=== PATIENT | female | born 2005 | race Caucasian/White ===

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

== ENCOUNTER 2023-09-30 10:31 | Outpatient (CLI) | payer OTHER, SELFPAY ==
[2023-09-30 15:09] LABS: Chlamydia DNA Amplified* NOT DETECTED (No Detected); GC DNA Amplified* NOT DETECTED (No Detected)
== END 2023-09-30 10:32 | disposition home or self-care (01) ==
PROVIDERS: PCP Physician Assistant Medical; Visit Provider Physician Assistant Medical
DX: Z30.9 Encounter for contraceptive management, unspecified (principal); Z11.3 Encounter for screening for infections with a predominantly sexual mode of transmission
CPT/HCPCS: 87491; 87591

== ENCOUNTER 2023-12-03 14:52 | Outpatient (CLI) | payer OTHER, SELFPAY ==
--- OUTSIDE RECORDS SUMMARY | 2023-12-03 14:57 | XMS_ITS | Referral Summary ---
Author Name Unknown Organization [facility] Address [address] [place] [address] Care Team Providers Care Leather Scrubber Name Role Phone Unavailable Primary Care Provider Unavailabl e Source Comments Patient records contain information from all sites at [facility]. For routine questions regarding patient records, call [phone] during business hours, M-F 8:00 AM - 5:00 PM Central Time. Record requests for emergency care only can be directed to [phone] at any time.[facility] Allergies No known active allergies Medications No known medications Active Problems Problem Noted Date Diagnosed Date Depression Major Recurrent Without Psychotic Fea tures 08/18/2019 Resolved Problems Problem Noted Date Diagnosed Date Resolved Date Suicide Ideation 08/15/2019 08/22/2019 Immunizations Name Administration Dates Next Due DTaP (Infanrix, Tripedia) 01/23/2009,,03/26/2004, 004,2003 DTaP / Hep B / IPV (Pediarix) 07/01/2004, 003,2003 H1N1 All Forms 11/03/2009 Hib (PRP-T) (ACTHIB, HIBERIX) 05/09/2005 ,03/26/2004,01/01/2004, 003 IPV 09/09/2004,01/01/2004,2003 Influenza TIV (IM) 09/14/2008 MMR 01/23/2009,09/09/2004 PCV7 (discontinued) 12/16/2004, 4,03/26/2004, 003 JOSE 01/23/2009,12/16/2004 influenza vaccine quad (FLUZONE/FLUARIX) (6 months and older)(PF) 08/16/2019 Social History Tobacco Use Types Packs/Day Years Used Date Smoking Tobacco: Never Smokeless Tobacco: Never Humiliation, Afraid, Rape, and Kick questionnair e Answer Date Recorded Within the last year, have y ou been afraid of your partner or ex-partner? No 03/11/2022 Within the last year, have y ou been humiliated or emotionally abused in other ways by your partner or ex-partner? No Within the last year, have y ou been kicked, hit, slapped, or otherwise physically hurt by your partner or ex-partner? No 03/11/2022 Within the last year, have y ou been raped or forced to have any kind of sexual activity by your partner or ex-partner? No 03/11/2022 Social Connection and Isolat ion Panel [NHANES] Answer Date Recorded In a typical week, how many times do you talk on the phone with family, friends, or neighbors? More than three times a week 03/11/2022 How often do you get togethe r with friends or relatives? More than three times a week 03/11/2022 How often do you attend chur ch or holiness services? Never 03/11/2022 Do you belong to any clubs o r organizations such as judaism groups, unions, fraternal or athletic groups, or school groups? No 03/11/2022 How often do you attend meet ings of the clubs or organizations you belong to? Never 03/11/2022 Are you , , di vorced, , never , or living with a partner? Never 03/11/2022 AUDIT-C Answer Date Recorded Q1: How often do you have a drink containing alc ohol? Never 03/11/2022 Average Number of Drinks Not on file 022 Frequency of Binge Drinking Not on file 02/15 Overall Financial Resource Strain (CARDIA) Answe r Date Recorded How hard is it for you to pa y for the very basics like food, housing, medical care, and heating? Not hard at all 03/11/2022 PHQ-2 Answer Date Recorded PHQ-2 Score 2 03/11/2022 [facility] - Occupational Stress Questionnaire Answer Date Recorded Do you feel stress - tense, restless, nervous, or anxious, or unable to sleep at night because your mind is troubled all the time - these days? To some extent 03/11/2022 Exercise Vital Sign Answer Date Recorde d On average, how many days pe r week do you engage in moderate to strenuous exercise (like a brisk walk)? 2 days 03/11/2022 On average, how many minutes do you engage in exercise at this level? 20 min 03/11/2022 Hunger Vital Sign Answer Date Recorded Within the past 12 months, y ou worried that your food would run out before you got the money to buy more. Never true 03/11/20 Within the past 12 months, t he food you bought just didn't last and you didn't have money to get more. Never true 03/11/2022 PRAPARE - Transportation Answer Date Re corded In the past 12 months, has l ack of transportation kept you from medical appointments or from getting medications? No 02/15 In the past 12 months, has l ack of transportation kept you from meetings, work, or from getting things needed for daily living? No 03/11/2022 Housing Stability Vital Sign Answer Clyde e Recorded In the last 12 months, was t here a time when you were not able to pay the mortgage or rent on time? No 03/11/2022 In the last 12 months, how many places have you lived? 1 03/11/2022 In the last 12 months, was t here a time when you did not have a steady place to sleep or slept in a jail (including now)? No 03/11/2022 Depression Answer Date Recor ded PHQ-9 Total Score (max 27) 14 03/11 Nutrition Answer Date Recorded Nutrition: EVOO Fat Source Yes 03/11 On average, how many serving s of fruits and vegetables do you eat per day (serving size is equal to 1 cup or approximately the size of a tennis ball)? 0-1 03/11/2022 Dental Answer Date Recorded Dental: Regular Dentist No 03/11/20 Employment Answer Date Recorded Employment status Employed and actively working without restrictions 03/11/2022 Education Answer Date Recorded What is the highest level of school you have completed or the highest degree you have received? 12th grade 03/11/2022 Sex and Gender Information Value Date Recorded Sex Assigned at Female 03/11/2022 7:34 AM CDT Gender Identity Not on file Sexual Orientation Bisexual 03/11/2022 7: 34 AM CDT Last Filed Vital Signs Vital Sign Reading Time Taken Comments Blood Pressure 120/70 08/22/2019 7:00 AM CDT Pulse 93 08/22/2019 7:00 AM CDT Temperature 36.7 ??C (98.1 ??F) 08/22/2019 7:00 AM CD T Respiratory Rate 18 08/22/2019 7:00 AM CDT Oxygen Saturation 98% 08/22/2019 7:00 AM CDT Inhaled Oxygen Concentration - - Weight 84.5 kg (186 lb 4.6 oz) 08/22/2019 7:00 A M CDT Height 180 cm (5' 10.87) 08/15/2019 8:29 PM CDT Body Mass Index 26.08 08/15/2019 8:29 PM CDT Plan of Treatment Not on file Advance Directives For more information, please contact: [phone] Latest Code Status on File Code Status Date Activated Date Inactivated Comments Full Code 08/15/2019 8:55 PM 08/22/2019 1:26 PM Question Answer Comments Full Code: Not Discussed Due to: Not medically appropriate
--- OUTSIDE RECORDS SUMMARY | 2023-12-03 14:57 | XMS_ITS | Encounter Summary ---
Author Name Unknown Organization [facility] Address [address] [place] [address] Care Team Providers Care Web Marketing Strategist Name Role Phone Alysa Gillis MD Primary Care Provid er Gwen Conde MD Unavailable [phone] Alysa Gillis MD Unavailable + [phone] Alla Farley DO Primary Care Provider [phone] Padmini Gillis NP Unavailable Encounter Details Date Type Department Care Team (Late st Contact Info) Description 08/16/2013 [facility] Extended Documentation [facility] Services [facility] [address] [place] [address] Nita Medina, [facility] [address] [place] [address] Social History Tobacco Use Types Packs/Day Years Used Date Smoking Tobacco: Never Sex and Gender Information Value Date Recorded Sex Assigned at Not on file Gender Identity Not on file Sexual Orientation Not on file documented as of this encounter Plan of Treatment Not on file documented as of this encounter Visit Diagnoses Not on filedocumented in this encounter Care Teams Web Marketing Strategist Relationship Specialty Start Date End Date Alysa Gillis MD [address] [address] PCP - General Pediatrics 01/20/13 08/13/19 Alysa Gillis MD [address] [address] PCP - Assigned PCP 01/13/14 12/11/18 Alla Farley DO [facility] [address] [place] [address] PCP - General 08/14/19 Gwen Conde MD [address] [address] Pediatric Cardiology 07/13/15 Padmini Gillis NP [address] [place] [address] Assigned PCP 09/06/22 documented as of this encounter
--- OUTSIDE RECORDS SUMMARY | 2023-12-03 14:57 | XMS_ITS | Encounter Summary ---
Author Name Unknown Organization [facility] Address [address] [place] [address]. [place] [address] Care Team Providers Care Banquet Stewardess Name Role Phone Gwen Conde MD Unavailable [phone] Alla Farley DO Primary Care Provider [phone] Padmini Gillis NP Unavailable Reason for Visit * Reason Onset Date Comments MH/CD Inpatient 08/14/2019 Encounter Details Date Type Department Care Team ([facility] st Contact Info) Description 08/14/2019 [facility] Intake [address] [place] [id number] Generic, Behavioral Intake, MH/CD Inpatient Social History Tobacco Use Types Packs/Day Years Used Date Smoking Tobacco: Never Smokeless Tobacco: Never Alcohol Use Standard Drinks/Week Comments No 0 (1 standard drink = 0.6 oz pur e alcohol) Sex and Gender Information Value Date Recorded Sex Assigned at Not on file Gender Identity Not on file Sexual Orientation Not on file documented as of this encounter Miscellaneous Notes * Telephone Encounter - Ant Drew - 08/15/2019 2:29 PM CDT [facility]. This [facility] include [facility] and [facility]. Still seeking placement * Telephone Encounter - Jose Elias Delarosa - 08/15/2019 12:23 AM CDT ED called to report pt was accepted by [facility] but is out of network pt parents declined Pt will remain on wait-list * Telephone Encounter - JaxsonMegan godfrey - 08/14/2019 4:34 PM CDT S: Keagan from oct called with report; requesting admit on pt currently at [facility] ED due toSI with plans to cut self or attempt to get shot by someone with a gun B: hx dx of depression; pt reportedly denies hx of previous IP mental health hospitalizations; per caller, pt reports hx of a previous suicide attempt by overdose approximately one month ago, however, pt reports she vomited up the pills shortly after taking them and did not tell anyone or seek medical attention following the ingestion; pt reportedly denies any ingestion today; per caller, pt is endorsing SI, sleep disruption, hopelessness, and decreased motivation; caller states pts mother provided collateral information and reported that pt recently had a friend complete suicide, which is likely a stressor for pt; pt reportedly denies taking any psychiatric medications at this time, and denies having an OP therapist; pt reportedly denies use of substances; no hx of aggression or violencereported A: per caller, pt has been medically cleared through [facility] ED for admission; no chronic medicalissues reported; voluntary/cooperative-pts parents agree to give admission consent; utox and HCG negative R: adolescent mental health is currently at capacity at [facility] Speeder Hand states he will check with parents to see if they are willing to consider placement outsideof the [facility] area, and will follow up with intake Pt added to wait list at this time, and will remain in ED until an appropriate bed is available; barman notified that pt has been placed on wait list 4:41pm Per Keagan in OCT, pt will consider placement outside of the [facility]--service writer advisor contacted [facility] and spoke with Raina who states they are at capacity for the evening; pt remains on wait list at this time Update (10:41pm): spoke with Linnette at [facility], who states that they are able to review pt for possible admission; [facility] ED to fax clinical information to [phone] Aws Solution Architect spoke with staff in ED at [facility] and provided contact information for [facility]--ED will fax information; awaiting outcome 10:55pm documented in this encounter Plan of Treatment Not on file documented as of this encounter Visit Diagnoses Not on filedocumented in this encounter Care Teams Banquet Stewardess Relationship Specialty Start Date End Date Alla Farley DO [facility] [address] [place] [address] PCP - General 08/14/19 Gwen Conde MD [address] [facility] [address] [place] [address] Pediatric Cardiology 07/13/15 Padmini Gillis NP [address] [place] [address] Assigned PCP 09/06/22 documented as of this encounter
--- OUTSIDE RECORDS SUMMARY | 2023-12-03 14:57 | XMS_ITS ---
Author Name Unknown Organization [facility] Address [address] [place] [address] Care Team Providers Care Yardage Control Operator Forming Name Role Phone Unavailable Unavailable Unavailable Surgery Details Not on file Complications Check Surgery Details section. Procedure Estimated Blood Loss Check Surgery Details section. Procedure Findings Check Surgery Details section. Procedure Specimens Taken Check Surgery Details section.
--- OUTSIDE RECORDS SUMMARY | 2023-12-03 14:57 | XMS_ITS | Encounter Summary ---
Author Name Unknown Organization [facility] Address [address] [place] [address] Care Team Providers Care Wildfire Prevention Specialist Name Role Phone Alysa Gillis MD Primary Care Provid er Gwen Conde MD Unavailable [phone] Alysa Gillis MD Unavailable + [phone] Alla Farley DO Primary Care Provider [phone] Padmini Gillis NP Unavailable Encounter Details Date Type Department Care Team (Late st Contact Info) Description 12/31/2015 [facility] [address] [facility] [address] [place] [address] Gwen Conde MD [address] [facility] [address] [address] [place] [address] Social History Tobacco Use Types Packs/Day Years Used Date Smoking Tobacco: Never Smokeless Tobacco: Never Alcohol Use Standard Drinks/Week Comments Not Asked 0 (1 standard drink = 0.6 oz pur e alcohol) Sex and Gender Information Value Date Recorded Sex Assigned at Not on file Gender Identity Not on file Sexual Orientation Not on file documented as of this encounter Plan of Treatment Not on file documented as of this encounter Visit Diagnoses Not on filedocumented in this encounter Care Teams Wildfire Prevention Specialist Relationship Specialty Start Date End Date Alysa Gillis MD [address] [address] PCP - General Pediatrics 01/20/13 08/13/19 Alysa Gillis MD [address] [address] PCP - Assigned PCP 01/13/14 12/11/18 Alla Farley DO [facility] [address] [place] [address] PCP - General 08/14/19 Gwen Conde MD [address] [address] Pediatric Cardiology 07/13/15 Padmini Gillis NP [address] [place] [address] Assigned PCP 09/06/22 documented as of this encounter
--- OUTSIDE RECORDS SUMMARY | 2023-12-03 14:57 | XMS_ITS | Clinical Summary ---
Author Name Unknown Organization [facility] Address [address] [place] [address] Care Team Providers Care Banbury Mill Operator Name Role Phone Unavailable Primary Care Provider Unavailabl e Source Comments Patient records contain information from all sites at [facility]. For routine questions regarding patient records, call [phone] during business hours, M-F 8:00 AM - 5:00 PM Central Time. Record requests for emergency care only can be directed to [phone] at any time.[facility] Allergies No known active allergies Medications No [...] often do you attend chur ch or roman catholic services? Never 03/11/2022 Do you belong to any clubs o r organizations such as confucianism groups, unions, fraternal or athletic groups, or [...] Answer Date Recorded PHQ-2 Score 2 03/11/2022 [facility] of Occupat ional Health - Occupational Stress [...] place to sleep or slept in a [place] [facility] [place] facility (including now)? No 03/11/2022 Depression Answer Date [...] 08/15/2019 8:29 PM CDT Plan of Treatment Health Maintenance Due Date Last Done Comments Chlamydia and Gonorrhea Screening 2003 HIV Screening 2003 Hearing Screening during Well Child Visit 2003 Hepatitis C Screening 2003 1 week Well Child Check-Up 2003 1 month Well Child Check-Up 2003 2 month Well Child Check-Up 2003 4 month Well Child Check-Up 2003 6 month Well Child Check-Up 01/29/2004 9 month Well Child Check-Up 04/30/2004 12 month Well Child Check-Up 07/31/2004 15 month Well Child Check-Up 10/30/2004 18 month Well Child Check-Up 01/28/2005 2 year Well Child Check-Up 07/31/2005 30 month Well Child Check-Up 01/28/2006 3 year Well Child Check-Up 07/31/2006 4 year Well Child Check-Up 07/31/2007 5 year Well Child Check-Up 07/31/2008 6 year Well Child Check-Up 07/31/2009 7 year Well Child Check-Up 07/31/2010 8 year Well Child Check-Up 07/31/2011 9 year Well Child Check-Up 07/31/2012 10 year Well Child Check-Up 07/31/2013 11 year Well Child Check-Up 07/31/2014 12 year Well Child Check-Up 07/31/2015 13 year Well Child Check-Up 07/31/2016 14 year Well Child Check-Up 07/31/2017 Vision Screening during Well Child Visit 2017 15 year Well Child Check-Up 07/31/2018 16 year Well Child Check-Up 07/31/2019 17 year Well Child Check-Up 07/31/2020 18 year Well Child Check-Up 07/31/2021 Depression Monitoring (PHQ-9) 07/11/2022 03/11/2022 19 year Well Child Check-Up 07/31/2022 COVID-19 Vaccine ( season) 2023 08/26/2022, 04/02/2021, 03/12/2021 20 year Well Child Check-Up 07/31/2023 Well Child Check-Up (WCC) 07/31/2023 Influenza Vaccine (#1) 2023 , 08/16/2019, 10/18/2018, Additional history exists DTaP,Tdap,and Td Vaccines (7 - Td or Tdap) 08/03/2025 08/03/2015, 01/23/2009, 05/09/2005, Additional history exists Hepatitis B Vaccines Completed 07/01/2004, 07/01/2004, 07/01/2004, Additional history exists Pneumococcal vaccine (0-64 years) Aged Out 03/20/2006, 12/16/2004, 07/01/2004, Additional history exists No longer eligible based on patient's age to complete this topic Meningococcal Vaccine Aged Out 07/14/2016, 016 No longer eligible based on patient's age to complete this topic Anemia/Iron Deficiency Screening During Well Child Visit (if High Risk Menstruating Female) Completed 08/18/2018 HPV Vaccines Completed 10/18/2018, 07/14/2016 Advance Directives For more information, please contact: [phone] Latest Code Status on File Code Status Date Activated Date Inactivated Comments Full Code 08/15/2019 8:55 PM 08/22/2019 1:26 PM Question Answer Comments Full Code: Not Discussed Due to: Not medically appropriate
--- OUTSIDE RECORDS SUMMARY | 2023-12-03 14:57 | XMS_ITS | Referral Summary ---
Author Name Unknown Organization [facility] Address [address] [place] [address] Care Team Providers Care Filler Shredder Machine Name Role Phone Gwen Conde MD Unavailable [phone] Alla Farley DO Primary Care Provider [phone] Padmini Gillis NP Unavailable Allergies Active Allergy Reactions Criticality Noted Date Comments Pollen Extract/Tree Extract 03/25/20 13 Seasonal Allergies 07/13/2015 Medications Medication Sig Dispensed Refills Start Date End Date Status Multiple Vitamins-Iron (MULTIVITAMIN/IRON PO) Take 1 tablet by mouth daily 0 Active ibuprofen (ADVIL/MOTRIN) 200 MG tablet Take 400-600 mg by mouth as needed for mild pain 0 Active QUEtiapine (SEROQUEL) 100 MG tablet Take 1 tablet (100 mg) by mouth At Bedtime 0 06/23/2022 Active prazosin (MINIPRESS) 1 MG capsule TAKE 1 CAPSULE BY MOUTH AT BEDTIME FOR NIGHTMARES 0 09/27/2021 Active XULANE 150-35 MCG/24HR patch APPLY 1 PATCH TOPICALLY ONCE A WEEK FOR 3 WEEKS OF A 4 WEEK CYCLE. NEED TO BE SEEN FOR REFILLS. 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 Other seborrheic dermatitis 07/05/2015 Generalized anxiety disorder 06/15/2013 Resolved Problems Problem Noted Date Diagnosed Date Resolved Date Depression 06/15/2013 08/26/2022 Anxiety 01/05/2013 06/15/2013 Immunizations Name Administration Dates Next Due COVID-19 Bivalent 18+ (Moderna) 08/26/2022 COVID-19 MONOVALENT 12+ (Pfizer) 04/02/2021,0405/2021 DTAP (<7y) 01/23/2009, 5,03/26/2004,2003,2003 DTaP / Hep B / IPV 07/01/2004,2003, 003 HEPATITIS A (PEDS 12M-18Y) 10/18/2018,07/14/2016 ,01/23/2009 HIB (PRP-T) 05/09/2005, 4,01/01/2004,2002 HPV 10/18/2018,07/14/2016 HepB 07/01/2004,2003,2003 Influenza (H1N1) 11/03/2009 Influenza (IIV3) PF 09/14/2008 Influenza Vaccine >6 months,quad, PF 08/26/2022 MMR 01/23/2009,09/09/2004 Meningococcal ACWY (Menveo??) 07/14/2016 Pneumococcal (PCV 7) 03/20/2006,12/16/19 05,07/01/2004,2003,2003 Poliovirus, inactivated (IPV) 01/23/2009 ,09/09/2004,01/01/2004,2002 TDAP (Adacel,Boostrix) 08/03/2015 Varicella 01/23/2009,12/16/2004 Social History Tobacco Use Types Packs/Day Years Used Date Smoking Tobacco: Never Smokeless Tobacco: Never Tobacco Cessation:Counseling Given: Not Answered Alcohol Use Standard Drinks/Week Comments No 0 (1 standard drink = 0.6 oz pur e alcohol) PHQ-2 Answer Date Recorded PHQ-2 Total Score (Adult) - Positive if 3 or more points; Administer PHQ-9 if positive 3 08/26/2022 Adolescent Education Answer Date Record ed Getting School Help Needed Not on file 09/01 Sex and Gender Information Value Date Recorded Sex Assigned at Not on file Gender Identity Not on file Sexual Orientation Not on file Last Filed Vital Signs Vital Sign Reading Time Taken Comments Blood Pressure 124/76 08/26/2022 2:30 PM CDT Pulse 103 08/26/2022 2:30 PM CDT Temperature 36.6 ??C (97.8 ??F) 08/26/2022 2:30 PM CD T Respiratory Rate 16 08/15/2019 3:17 PM CDT Oxygen Saturation 97% 08/26/2022 2:30 PM CDT Inhaled Oxygen Concentration - - Weight 116.5 kg (256 lb 14.4 oz) 08/26/2022 2:30 PM CDT Height 181 cm (5' 11.25) 08/26/2022 2:30 PM CDT Body Mass Index 35.58 08/26/2022 2:30 PM CDT Plan of Treatment Not on file Care Teams Filler Shredder Machine Relationship Specialty Start Date End Date Alla Farley, DO [facility] [address] [place] [address] PCP - General 08/14/19 Gwen Conde MD [address] [facility] [address] [place] [address] Pediatric Cardiology 07/13/15 Padmini Gillis NP [address] [place] [address] Assigned PCP 09/06/22
--- OUTSIDE RECORDS SUMMARY | 2023-12-03 14:57 | XMS_ITS | Clinical Summary ---
Author Name Unknown Organization [facility] Address [address] [place] [address] Care Team Providers Care Tromper Name Role Phone Gwen Conde MD Unavailable [phone] Alla Farley DO Primary Care Provider [phone] Padmini Gillis NP Unavailable Allergies Active Allergy [...] 18+ (Moderna) 08/26/2022 COVID-19 MONOVALENT 12+ (Pfizer) 04/02/2021,02/15 DTAP (<7y) 01/23/2009, 5,03/26/2004,2003,2003 DTaP / Hep B / IPV 07/01/2004,2003, 003 HEPATITIS A (PEDS 12M-18Y) 10/18/2018,07/14/2016 ,01/23/2009 HIB (PRP-T) 05/09/2005, 4,01/01/2004,2002 HPV 10/18/2018,07/14/2016 HepB 07/01/2004,2003,2003 Influenza (H1N1) 11/03/2009 Influenza (IIV3) PF 09/14/2008 Influenza Vaccine >6 months,quad, PF 08/26/2022 MMR 01/23/2009,09/09/2004 Meningococcal ACWY (Menveo??) 07/14/2016 Pneumococcal (PCV 7) 03/20/2006,12/16/19 05,07/01/2004,2003,2003 Poliovirus, inactivated (IPV) 01/23/2009 ,09/09/2004,01/01/2004,2002 TDAP (Adacel,Boostrix) 08/03/2015 Varicella 01/23/2009,12/16/2004 Family History Medical History Relation Comments Obesity Father Gastric Bypass Hypertension Maternal Grandfather Coronary Artery Disease Maternal Grandmother Diabetes Maternal Grandmother Hypertension Maternal Grandmother Cancer Mother lung, treated ~2 007 Hypertension Mother Neurologic Disorder Mother Migraine Psychotic Disorder Paternal Grandmother Depressi on Relation Status Comments Brother Father Alive Maternal Grandfather Maternal Grandmother Mother Alive Paternal Grandmother Sister Social History Tobacco Use Types Packs/Day Years [...] 08/26/2022 2:30 PM CDT Plan of Treatment Health Maintenance Due Date Last Done Comments ADVANCE CARE PLANNING 2003 ANNUAL REVIEW OF HM ORDERS 2003 CHLAMYDIA SCREENING 2003 DEPRESSION ACTION PLAN 2003 NICOTINE/TOBACCO CESSATION COUNSELING Q 1 YR 2003 YEARLY PREVENTIVE VISIT 08/10/2016 08/10/20 15, 07/18/2008, 07/07/2007 HIV SCREENING 2018 HEPATITIS C SCREENING 2021 PHQ-9 02/24/2023 08/26/2022, 08/26/2022 COVID-19 Vaccine ( season) 2023 08/26/2022, 04/02/2021, 03/12/2021 INFLUENZA VACCINE (#1) 2023 2, 11/03/2009, 09/14/2008 DTAP/TDAP/TD IMMUNIZATION (7 - Td or Tdap) 08/03/2025 08/03/2015, 01/23/2009, 05/09/2005, Additional history exists HEPATITIS B IMMUNIZATION Completed 004, 07/01/2004, 2003, Additional history exists Pneumococcal Vaccine: Pediatrics (0 to 5 Years) and At-Risk Patients (6 to 64 Years) Aged Out 03/20/2006, 12/16/2004, 07/01/2004, Additional history exists No longer eligible based on patient's age to complete this topic IPV IMMUNIZATION Completed 01/23/2009, , 07/01/2004, Additional history exists MENINGITIS IMMUNIZATION Aged Out 07/14/2016 No l onger eligible based on patient's age to complete this topic HPV IMMUNIZATION Completed 10/18/2018, 07/14/2016 RSV MONOCLONAL ANTIBODY Aged Out No l onger eligible based on patient's age to complete this topic Care Teams Tromper Relationship Specialty Start Date End Date Alla Farley DO [facility] [address] [place] [address] PCP - General 08/14/19 Gwen Conde MD [address] [facility] [address] [place] [address] Pediatric Cardiology 07/13/15 Padmini Gillis NP [address] [place] [address] Assigned PCP 09/06/22
--- NOTE | 2023-12-03 15:00 | CRLHL7_ITS ---
For Patients: As a result of the Century Cures Act, medical imaging exams and procedure reports are released immediately into your electronic medical record. You may view this report before your referring provider. If you have questions, please contact your health care provider. INDICATION: Iron deficiency anemia TECHNIQUE: Transabdominal and transvaginal scanning was performed. Transvaginal scanning was performed to optimally evaluate the endometrium and adnexa. Ovarian blood flow was evaluated with color-flow and pulsed Doppler. COMPARISON: None. FINDINGS: The uterus is normal in size and shape. The uterus measures 7.8 x 3.1 x 4.0 cm. No uterine mass is evident. The endometrial stripe is normal in thickness at 6 mm. There appears to be a 16 x 6 x 5 mm endometrial polyp. A simple 4.5 x 4.2 x 3.4 cm left ovarian or paraovarian cyst is demonstrated. The right ovary measures 3.6 x 1.9 x 1.7 cm and left 2.7 x 2.6 x 2.3 cm. Ovarian blood flow is demonstrated with color-flow and pulsed Doppler. No adnexal mass is evident. No free fluid is demonstrated. IMPRESSION: 1. Normal-thickness endometrial stripe at 6 mm and apparent 16 x 6 x 5 mm endometrial polyp. 2. Simple 4.5 cm left ovarian or paraovarian cyst. Dictated by Mehrdad Sutton MD @ 12/04/2023 10:44:56 AM (Electronically Signed)
== END 2023-12-03 14:53 | disposition home or self-care (01) ==
LOC: US 14:52
PROVIDERS: PCP Physician Assistant Medical; Visit Provider Physician Assistant Medical
DX: D50.9 Iron deficiency anemia, unspecified (principal); N83.202 Unspecified ovarian cyst, left side
CPT/HCPCS: 76830; 76856

== ENCOUNTER 2023-12-11 09:59 | Day surgery (SDC) | payer OTHER, SELFPAY ==
[2023-12-11] VITALS (15 sets, daily range): BP systolic 124–171; BP diastolic 78–100; PULSE 63–87; RESP 14–21; TEMP 36.3–36.4; O2SAT 93–98; BMI 32.6
--- OUTSIDE RECORDS SUMMARY | 2023-12-11 10:02 | XMS_ITS | Clinical Summary ---
Author Name Unknown Organization [facility] Address [address] [place] [address] Care Team Providers Care Property Assistant Name Role Phone Unavailable Primary Care Provider Unavailabl e Source Comments Patient records contain information from all sites at [facility]. For routine questions regarding patient records, call [phone] during business hours, M-F 8:00 AM - 5:00 PM Central Time. Record requests for emergency care only can be directed to [phone] at any time.[facility] Allergies No known active allergies Medications [...] often do you attend chur ch or hinduism services? Never 03/11/2022 Do you belong to any clubs o r organizations such as orthodoxy groups, unions, fraternal or athletic groups, or [...] Answer Date Recorded PHQ-2 Score 2 03/11/2022 [facility] - Occupational Stress [...] place to sleep or slept in a skilled nursing (including now)? No 03/11/2022 Depression Answer Date [...] Advance Directives For more information, please contact: [phone] Latest Code Status on File Code Status Date Activated Date Inactivated Comments Full Code 08/15/2019 8:55 PM 08/22/2019 1:26 PM Question Answer Comments Full Code: Not Discussed Due to: Not medically appropriate
--- OUTSIDE RECORDS SUMMARY | 2023-12-11 10:02 | XMS_ITS ---
Author Name Unknown Organization [facility] Address [address] [place] [address] Care Team Providers Care Scroll Shear Operator Name Role Phone Unavailable Unavailable Unavailable Surgery Details Not on file Complications Check Surgery Details section. Procedure Estimated Blood Loss Check Surgery Details section. Procedure Findings Check Surgery Details section. Procedure Specimens Taken Check Surgery Details section.
--- OUTSIDE RECORDS SUMMARY | 2023-12-11 10:02 | XMS_ITS | Referral Summary ---
Author Name Unknown Organization [facility] Address [address] [place] [address] Care Team Providers Care Accountant Bookkeeper Name Role Phone Unavailable Primary Care Provider Unavailabl e Source Comments Patient records contain information from all sites at [facility]. For routine questions regarding patient records, call [phone] during business hours, M-F 8:00 AM - 5:00 PM Central Time. Record requests for emergency care only can be directed to [phone] at any time.[facility] Allergies No known active allergies Medications [...] often do you attend chur ch or church services? Never 03/11/2022 Do you belong to any clubs o r organizations such as jain groups, unions, fraternal or athletic groups, or [...] Answer Date Recorded PHQ-2 Score 2 03/11/2022 [facility] - Occupational Stress [...] place to sleep or slept in a snf (including now)? No 03/11/2022 Depression Answer Date [...] Advance Directives For more information, please contact: [phone] Latest Code Status on File Code Status Date Activated Date Inactivated Comments Full Code 08/15/2019 8:55 PM 08/22/2019 1:26 PM Question Answer Comments Full Code: Not Discussed Due to: Not medically appropriate
--- OUTSIDE RECORDS SUMMARY | 2023-12-11 10:03 | XMS_ITS | Encounter Summary ---
Author Name Unknown Organization [facility] Address [address] [place] [address] Care Team Providers Care Document Scanner Name Role Phone Alysa Gillis MD Primary Care Provid er Gwen Conde MD Unavailable [phone] Alysa Gillis MD Unavailable + [phone] Alla Farley DO Primary Care Provider [phone] Padmini Gillis NP Unavailable Encounter Details Date Type Department Care Team (Late st Contact Info) Description 12/31/2015 [facility] [address] [facility] , [address] [place] [address] Gwen Conde MD [address] [facility] [address] [place] [address] Social History Tobacco Use Types [...] on filedocumented in this encounter Care Teams Document Scanner Relationship Specialty Start Date End Date Alysa Gillis MD [address] [address] PCP - General Pediatrics 01/20/13 08/13/19 Alysa Gillis MD [address] [address] PCP - Assigned PCP 01/13/14 12/11/18 Alla Farley DO [facility] [address] [place] [address] PCP - General 08/14/19 Gwen Conde MD [address] [address] Pediatric Cardiology 07/13/15 Padmini Gillis NP [address] [place] [address] Assigned PCP 09/06/22 documented as of this encounter
--- OUTSIDE RECORDS SUMMARY | 2023-12-11 10:03 | XMS_ITS | Encounter Summary ---
Author Name Unknown Organization [facility] Address [address] [place] [address] Care Team Providers Care Seed Corn Production Manager Name Role Phone Gwen Conde MD Unavailable [phone] Alla Farley DO Primary Care Provider [phone] Padmini Gillis NP Unavailable Reason for Visit * Reason Onset Date Comments MH/CD Inpatient 08/14/2019 Encounter Details Date Type Department Care Team ([facility] st Contact Info) Description 08/14/2019 [facility] Behavioral Health Intake [address] [place] [id number] Generic, Behavioral Intake, MH/CD Inpatient Social [...] PM CDT Parents authorize sending pt to [facility] or [facility]. This would include [facility] and [facility]. Still seeking placement * Telephone Encounter - Jsoe Elias Delarosa - 08/15/2019 12:23 AM CDT ED called to report pt was accepted by [facility] but is out of network pt parents declined Pt will remain on wait-list * Telephone Encounter - JaxsonMegan godfrey - 08/14/2019 4:34 PM CDT S: Keagan from oct called with report; requesting admit on pt currently at [facility] ED due toSI with plans to [...] caller, pt has been medically cleared through [facility] ED for admission; no chronic medicalissues reported; voluntary/cooperative-pts parents agree to give admission consent; utox and HCG negative R: adolescent mental health is currently at capacity at [facility]; [facility] Pct states he will check with parents to see if they are willing to consider placement outsideof the [facility] area, and will follow up with intake Pt added to wait list at this time, and will remain in ED until an appropriate bed is available; drying can worker notified that pt has been placed on wait list 4:41pm Per Keagan in OCT, pt will consider placement outside of the [facility]--administrative underwriter contacted [facility] and spoke with Raina who states they are at capacity for the evening; pt remains on wait list at this time Update (10:41pm): spoke with Linnette at [facility], who states that they are able to review pt for possible admission; [facility] ED to fax clinical information to [phone] Choir Member spoke with staff in ED at [facility] and provided contact information for [facility]--ED will fax information; awaiting outcome 10:55pm documented in this encounter Plan of Treatment Not on file documented as of this encounter Visit Diagnoses Not on filedocumented in this encounter Care Teams Seed Corn Production Manager Relationship Specialty Start Date End Date Alla Farley DO [facility] [address] [place] [address] PCP - General 08/14/19 Gwen Conde MD [address] [facility] [address] [place] [address] Pediatric Cardiology 07/13/15 Padmini Gillis NP [address] [place] [address] Assigned PCP 09/06/22 documented as of this encounter
--- OUTSIDE RECORDS SUMMARY | 2023-12-11 10:03 | XMS_ITS | Clinical Summary ---
Author Name Unknown Organization [facility] Address [address] [place] [address] Care Team Providers Care Automotive Detailer Name Role Phone Gwen Conde MD Unavailable [phone] Alla Farley DO Primary Care Provider [phone] Padmini Gillis NP Unavailable Allergies Active Allergy [...] age to complete this topic Care Teams Automotive Detailer Relationship Specialty Start Date End Date Alla Farley DO [facility] [address] [place] [address] PCP - General 08/14/19 Gwen Conde MD [address] [facility] [address] [place] [address] Pediatric Cardiology 07/13/15 Padmini Gillis NP [address] [place] [address] Assigned PCP 09/06/22
--- OUTSIDE RECORDS SUMMARY | 2023-12-11 10:03 | XMS_ITS | Encounter Summary ---
Author Name Unknown Organization [facility] Address [address] [place] [address] Care Team Providers Care Transformer Repairer Name Role Phone Alysa Gillis MD Primary Care Provid er Gwen Conde MD Unavailable [phone] Alysa Gillis MD Unavailable [phone] Alla Farley DO Primary Care Provider [phone] Padmini Gillis NP Unavailable Encounter Details Date Type Department Care Team (Late st Contact Info) Description 08/16/2013 [facility] Extended Documentation [facility] Services [facility] [address] [place] [address] Nita Medina, [facility] [address] [place] [address] Social History Tobacco Use Types Packs/Day Years Used Date Smoking Tobacco: Never Sex and Gender Information Value Date Recorded Sex Assigned at Not on file Gender Identity Not on file Sexual Orientation Not on file documented as of this encounter Plan of Treatment Not on file documented as of this encounter Visit Diagnoses Not on filedocumented in this encounter Care Teams Transformer Repairer Relationship Specialty Start Date End Date Alysa Gillis MD [address] [address] PCP - General Pediatrics 01/20/13 08/13/19 Alysa Gillis MD [address] [address] PCP - Assigned PCP 01/13/14 12/11/18 Alla Farley DO [facility] [address] [place] [address] PCP - General 08/14/19 Gwen Conde MD [address] [address] Pediatric Cardiology 07/13/15 Padmini Gillis NP [address] [place] [address] Assigned PCP 09/06/22 documented as of this encounter
--- OUTSIDE RECORDS SUMMARY | 2023-12-11 10:03 | XMS_ITS | Referral Summary ---
Author Name Unknown Organization [facility] Address [address] [place] [address] Care Team Providers Care Computed Tomography Technologist Name Role Phone Gwen Conde MD Unavailable [phone] Alla Farley DO Primary Care Provider [phone] Padmini Gillis NP Unavailable Allergies Active Allergy [...] of Treatment Not on file Care Teams Computed Tomography Technologist Relationship Specialty Start Date End Date Alla Farley, DO [facility] [address] [place] [address] PCP - General 08/14/19 Gwen Conde MD [address] [facility] [address] [place] [address] Pediatric Cardiology 07/13/15 Padmini Gillis NP [address] [place] [address] Assigned PCP 09/06/22
[2023-12-11 10:26] LABS: Ur HCG Qualitative* Negative (Negative)
[2023-12-11] MEDS: ETHYL CHLORIDE 1 APPLICATION 1 APPLIC TOPICAL (10:58)
[2023-12-11] MEDS: SODIUM CHLORIDE 0.9 % (FLUSH) 10 ML SYRINGE IVF (10:58)
[2023-12-11] MEDS: LACTATED RINGERS 1000 ML 1,000 ML 100 ML IV ×2 (10:59→14:01)
--- NOTE | 2023-12-11 11:35 | W.ANESCHARGE ---
Anesthesia Charges Start Date/Time Anesthesia Start Date: 12/11/23 Anesthesia Start Time: 11:41 Stop Date/Time Anesthesia Stop Date: 12/11/23 Anesthesia Stop Time: 12:18
--- NOTE | 2023-12-11 12:17 | W.PM.ENTPROC ---
Procedure Note Date of procedure: 12/11/23 Procedure: Preoperative diagnosis chronic tonsillitis, adenotonsillar hypertrophy, upper airway obstruction, nasal obstruction Postoperative diagnosis same Procedure adenotonsillectomy Under general endotracheal anesthesia the patient was prepped and draped in usual fashion. The McIvor mouth gag was inserted the tongue retracted forward. No submucous cleft was noted on inspection or palpation. The right and left tonsils were removed with a combination of needlepoint cautery, bipolar cautery and suction cautery. Meticulous hemostasis was achieved. The adenoid pad was visualized with a laryngeal mirror and removed with suction cautery. The patient was extubated in the operating room taken recovery in satisfactory condition. Blood loss was less than 10 mL. Surgeon: Humberto Darnell MD
[2023-12-11] MEDS: fentaNYL 100 MCG/2 ML inj 50 MCG IVP ×2 (12:18→12:27)
--- NOTE | 2023-12-11 12:21 | W.ANESCHARGE ---
Anesthesia Charges Start Date/Time Anesthesia Start Date: 12/11/23 Anesthesia Start Time: 11:41 Stop Date/Time Anesthesia Stop Date: 12/11/23 Anesthesia Stop Time: 12:18
[2023-12-11] MEDS: HYDROmorphone 0.5 mg/0.5 ml inj IVP (12:37)
--- NOTE | 2023-12-11 13:07 | SUR.PHASEI ---
Upon waking up in PACU, patient stated I don't want to wake up. RN asked why? Patient responded with, I don't want to be alive anymore. RN (myself) reported this information to SDS Else, RN, construction site manager NOEL Gracia, Nirmala Kapadia, Director and Dr. Darnell. Nancy Yang RN
[2023-12-11] MEDS: ACETAMINOPHEN 160 MG/5 ML CUP 320 MG PO (13:15)
[2023-12-11] MEDS: IBUPROFEN 100 MG/5 ML SUSP 200 MG PO (13:15)
--- NOTE | 2023-12-11 13:30 | SUR.PHASEII ---
1300: Nirmala (retail custodial associate) and video games storywriter were in Room with pt, Nirmala asked pt if it was okay she talks to her Mom about the comment that was said in PACU. Pt stated yes, and nodded head yes
--- NOTE | 2023-12-11 13:33 | SUR.PHASEII ---
Nirmala and Mother spoke outside of room. Pt lives with Mom and Dad. She will be discharged home to them.
[2023-12-11] MEDS: OXYCODONE 1 MG/ML ORAL SOLN 5 MG PO (13:45)
--- NOTE | 2023-12-11 14:43 | SUR.PHASEII ---
pt tolerated liquids and jello without difficulty.
== END 2023-12-11 14:45 | disposition home or self-care (01) ==
PROVIDERS: PCP Physician Assistant Medical; Visit Provider Otolaryngology
PROC: (CPT 42821; principal; 2023-12-11 11:15)
DX: J35.01 Chronic tonsillitis (principal); J35.3 Hypertrophy of tonsils with hypertrophy of adenoids
CPT/HCPCS: 42821; 00170; 81025; 88304; A9270; J0330; J1100; J1170; J2405; J2704; J3010; J7120

== ENCOUNTER 2024-07-21 13:50 | Outpatient (CLI) | payer OTHER, SELFPAY ==
--- OUTSIDE RECORDS SUMMARY | 2024-07-26 08:57 | XMS_ITS | Encounter Summary ---
Author Organization [facility] Address [address] [place] [address] Care Team Providers Care Digital Music Instructor Name Role Phone Gwen Conde MD Unavailable [phone] Alla Farley DO Primary Care Provider [phone] Padmini Gillis NP Unavailable Reason for Visit * Reason Onset Date Comments MH/CD Inpatient 08/14/2019 Encounter Details Date Type Department Care Team ([facility] st Contact Info) Description 08/14/2019 [facility] Behavioral Health Intake [address] [place] [id number] Generic, Behavioral Intake, MH/CD Inpatient Social [...] PM CDT Parents authorize sending pt to [facility] or [facility]. This would include [facility] and [facility]. Still seeking placement * Telephone Encounter - Jose Elias Delarosa - 08/15/2019 12:23 AM CDT ED called to report pt was accepted by [facility] but is out of network pt parents declined Pt will remain on wait-list * Telephone Encounter - Megan Puri - 08/14/2019 4:34 PM CDT S: Ekagan from oct called with report; requesting admit on pt currently at [facility] ED due toSI with plans to cut [...] caller, pt has been medically cleared through [facility] ED for admission; no chronic medicalissues reported; voluntary/cooperative-pts parents agree to give admission consent; utox and HCG negative R: adolescent mental health is currently at capacity at [facility]; [facility] also at capacity this evening Material Dispatcher states he will check with parents to see if they are willing to consider placement outsideof the [facility] area, and will follow up with intake Pt added to wait list at this time, and will remain in ED until an appropriate bed is available; warehouse receiving clerk notified that pt has been placed on wait list 4:41pm Per Keagan in OCT, pt will consider placement outside of the [facility]--commercial underwriter contacted [facility] and spoke with Raina who states they are at capacity for the evening; pt remains on wait list at this time Update (10:41pm): spoke with Linnette at [facility], who states that they are able to review pt for possible admission; [facility] ED to fax clinical information to [phone] Waxer spoke with staff in ED at [facility] and provided contact information for [facility]--ED will fax information; awaiting outcome 10:55pm documented in this encounter Plan of Treatment Not on file documented as of this encounter Visit Diagnoses Not on filedocumented in this encounter Care Teams Digital Music Instructor Relationship Specialty Start Date End Date Alla Farley DO [facility] [address] [place] [address] PCP - General 08/14/19 Gwen Conde MD [address] [facility] [address] [place] [address] Pediatric Cardiology 07/13/15 Padmini Gillis NP [address] [place] [address] Assigned PCP 09/06/22 documented as of this encounter
--- OUTSIDE RECORDS SUMMARY | 2024-07-26 08:57 | XMS_ITS | Referral Summary ---
Author Organization [facility] Address [address] [place] [address] Care Team Providers Care Stretcher Drier Operator Name Role Phone Gwen Conde MD Unavailable [phone] Alla Farley DO Primary Care Provider [phone] Padmini Gillis NP Unavailable Allergies Active Allergy Reactions Criticality Noted Date Comments Pollen Extract/Tree Extract 03/25/20 13 Seasonal Allergies 07/13/2015 Medications Medication Sig Dispensed Refills Start Date End Date Status Multiple Vitamins-Iron (MULTIVITAMIN/IRON PO) Take 1 tablet by mouth daily Active ibuprofen (ADVIL/MOTRIN) 200 MG tablet Take 400-600 mg by mouth as needed for mild pain Active QUEtiapine (SEROQUEL) 100 MG tablet Take 1 tablet (100 mg) by mouth At Bedtime 06/23/2022 Active prazosin (MINIPRESS) 1 MG capsule TAKE 1 CAPSULE BY MOUTH AT BEDTIME FOR NIGHTMARES 09/27/2021 Active XULANE 150-35 MCG/24HR patch APPLY 1 PATCH TOPICALLY ONCE A WEEK FOR 3 WEEKS OF A 4 WEEK CYCLE. NEED TO BE SEEN FOR REFILLS. 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 Other seborrheic dermatitis 07/05/2015 Generalized anxiety disorder 06/15/2013 Resolved Problems Problem Noted Date Diagnosed Date Resolved Date Depression 06/15/2013 08/26/2022 Anxiety 01/05/2013 06/15/2013 Immunizations Name Administration Dates Next Due COVID-19 Bivalent 18+ (Moderna) 08/26/2022 COVID-19 MONOVALENT 12+ (Pfizer) 04/02/2021,0405/2021 DTAP (<7y) 01/23/2009, 5,03/26/2004,2003,2003 DTaP/HepB/IPV 07/01/2004,2003,2003 HEPATITIS A (PEDS 12M-18Y) 10/18/2018,07/14/2016 ,01/23/2009 HIB [...] of Treatment Not on file Care Teams Stretcher Drier Operator Relationship Specialty Start Date End Date Alla Farley DO [facility] [address] [place] [address] PCP - General 08/14/19 Gwen Conde MD [address] [facility] [address] [place] [address] Pediatric Cardiology 07/13/15 Padmini Gillis NP [address] [place] [address] Assigned PCP 09/06/22
--- OUTSIDE RECORDS SUMMARY | 2024-07-26 08:57 | XMS_ITS | Encounter Summary ---
Author Organization [place] Address [address] [place] [address] Care Team Providers Care Ob/Gyn Doctor Name Role Phone Alysa Gillis MD Primary Care Provid er Gwen Conde MD Unavailable [phone] Alysa Gillis MD Unavailable + [phone] Alla Farley DO Primary Care Provider [phone] Padmini Gillis NP Unavailable Encounter Details Date Type Department Care Team (Late st Contact Info) Description 08/16/2013 [facility] Extended Documentation [facility] [address] [place] [phone] Nita Medina, [facility] [address] [place] [address] Social History Tobacco Use Types Packs/Day Years Used Date Smoking Tobacco: Never Sex and Gender Information Value Date Recorded Sex Assigned at Not on file Gender Identity Not on file Sexual Orientation Not on file documented as of this encounter Plan of Treatment Not on file documented as of this encounter Visit Diagnoses Not on filedocumented in this encounter Care Teams Ob/Gyn Doctor Relationship Specialty Start Date End Date Alysa Gillis MD [address] [address] PCP - General Pediatrics 01/20/13 08/13/19 Alysa Gillis MD [address] [address] PCP - Assigned PCP 01/13/14 12/11/18 Alla Farley DO [facility] [address] [place] [address] PCP - General 08/14/19 Gwen Conde MD 9680 [facility] [address] [place] [address] Pediatric Cardiology 07/13/15 Padmini Gillis NP [address] [place] [address] Assigned PCP 09/06/22 documented as of this encounter
--- OUTSIDE RECORDS SUMMARY | 2024-07-26 08:57 | XMS_ITS | Clinical Summary ---
Author Organization [place] Address [address] [place] [address] Care Team Providers Care Informal Waiter/Waitress Name Role Phone Gwen Conde MD Unavailable [phone] Alla Farley DO Primary Care Provider [phone] Padmini Gillis NP Unavailable Allergies Active Allergy [...] CHLAMYDIA SCREENING 2003 DEPRESSION ACTION PLAN 2003 YEARLY PREVENTIVE VISIT 08/10/2016 08/10/20 15, 07/18/2008, 07/07/2007 HIV SCREENING 2018 HEPATITIS C SCREENING 2021 PHQ-9 02/24/2023 08/26/2022, 08/26/2022 COVID-19 Vaccine ( season) 2024 08/26/2022, 04/02/2021, 03/12/2021 INFLUENZA VACCINE (#1) 2024 2, 11/03/2009, 09/14/2008 DTAP/TDAP/TD IMMUNIZATION (7 - Td or Tdap) 08/03/2025 08/03/2015, 01/23/2009, 05/09/2005, Additional history exists HEPATITIS B IMMUNIZATION Completed 004, 07/01/2004, 2003, Additional history exists Pneumococcal Vaccine: Pediatrics (0 to 5 Years) and At-Risk Patients (6 to 64 Years) Aged Out 03/20/2006, 12/16/2004, 07/01/2004, Additional history exists No longer eligible based on patient's age to complete this topic MENINGITIS IMMUNIZATION Aged Out 07/14/2016 No l onger eligible based on patient's age to complete this topic HPV IMMUNIZATION Completed 10/18/2018, 07/14/2016 RSV MONOCLONAL ANTIBODY Aged Out No l onger eligible based on patient's age to complete this topic Care Teams Informal Waiter/Waitress Relationship Specialty Start Date End Date Alla Farley DO [facility] [address] [place] [address] PCP - General 08/14/19 Gewn Conde MD 9680 [facility] 130 [place] [address] Pediatric Cardiology 07/13/15 Padmini Gillis NP [address] [place] [address] Assigned PCP 09/06/22
--- OUTSIDE RECORDS SUMMARY | 2024-07-26 08:57 | XMS_ITS | Encounter Summary ---
Author Organization [place] Address [address] [place] [address] Care Team Providers Care Cadastral Surveyor Name Role Phone Alysa Gillis MD Primary Care Provid er Gwen Conde MD Unavailable [phone] Alysa Gillis MD Unavailable + [phone] Alla Farley DO Primary Care Provider [phone] Padmini Gillis NP Unavailable Encounter Details Date Type Department Care Team (Late st Contact Info) Description 12/31/2015 [facility], [facility] [address] [place] [address] Gwen Conde MD [address] [facility] [address] [place] [address] Social History Tobacco Use Types [...] on filedocumented in this encounter Care Teams Cadastral Surveyor Relationship Specialty Start Date End Date Alysa Gillis MD [address] [address] PCP - General Pediatrics 01/20/13 08/13/19 Alysa Gillis MD [address] [address] PCP - Assigned PCP 01/13/14 12/11/18 Alla Farley DO [facility] [address] [place] [address] PCP - General 08/14/19 Gwen Conde MD [address] [address] Pediatric Cardiology 07/13/15 Padmini Gillis NP [address] [place] [address] Assigned PCP 09/06/22 documented as of this encounter
== END 2024-07-21 13:51 | disposition home or self-care (01) ==
LOC: NFLDREF 07-26 08:55
PROVIDERS: PCP Physician Assistant Medical; Referring Provider Physician Assistant Medical; Visit Provider Physician Assistant Medical
DX: G89.29 Other chronic pain (principal); N92.1 Excessive and frequent menstruation with irregular cycle; G89.4 Chronic pain syndrome
CPT/HCPCS: 80053; 82306; 82607; 82728; 84443; 86200; 86431

== ENCOUNTER 2024-08-03 12:49 | Outpatient (CLI) | payer OTHER, SELFPAY ==
--- OUTSIDE RECORDS SUMMARY | 2024-08-03 12:52 | XMS_ITS | Encounter Summary ---
Author Organization [place] Address [address] [place] [address] Care Team Providers Care Concrete Bucket Hooker Name Role Phone Alysa Gillis MD Primary Care Provid er Gwen Conde MD Unavailable [phone] Alysa Gillis MD Unavailable + [phone] Alla Farley DO Primary Care Provider [phone] Padmini Gillis NP Unavailable Encounter Details Date Type Department Care Team (Late st Contact Info) Description 08/16/2013 [facility] Extended Documentation [facility] [address] [place] [phone] Nita Medina, [facility] [address] [place] [address] Social History Tobacco Use Types Packs/Day Years Used Date Smoking Tobacco: Never Sex and Gender Information Value Date Recorded Sex Assigned at Not on file Gender Identity Not on file Sexual Orientation Not on file documented as of this encounter Plan of Treatment Not on file documented as of this encounter Visit Diagnoses Not on filedocumented in this encounter Care Teams Concrete Bucket Hooker Relationship Specialty Start Date End Date Alysa Gillis MD [address] [address] PCP - General Pediatrics 01/20/13 08/13/19 Alysa Gillis MD [address] [address] PCP - Assigned PCP 01/13/14 12/11/18 Alla Farley DO [facility] [address] [place] [address] PCP - General 08/14/19 Gwen Conde MD 9680 [facility] 130 [place] [address] Pediatric Cardiology 07/13/15 Padmini Gillis NP [address] [place] [address] Assigned PCP 09/06/22 documented as of this encounter
--- OUTSIDE RECORDS SUMMARY | 2024-08-03 12:52 | XMS_ITS | Referral Summary ---
Author Organization [place] Address [address] [place] [address] Care Team Providers Care Building Code Administrator Name Role Phone Gwen Conde MD Unavailable [phone] Alla Farley DO Primary Care Provider [phone] Padmini Gillis NP Unavailable Allergies Active Allergy [...] of Treatment Not on file Care Teams Building Code Administrator Relationship Specialty Start Date End Date Alla Farley DO [facility] [address] [place] [address] PCP - General 08/14/19 Gwen Conde MD 9680 [facility] 130 [place] [address] Pediatric Cardiology 07/13/15 Padmini Gillis NP [address] [place] [address] Assigned PCP 09/06/22
--- OUTSIDE RECORDS SUMMARY | 2024-08-03 12:52 | XMS_ITS | Clinical Summary ---
Author Organization [place] Address [address] [place] [address] Care Team Providers Care Sharepoint Designer Developer Name Role Phone Gwen Conde MD Unavailable [phone] Alla Farley DO Primary Care Provider [phone] Padmini Gillis NP Unavailable Allergies Active Allergy [...] age to complete this topic Care Teams Sharepoint Designer Developer Relationship Specialty Start Date End Date Alla Farley DO [facility] [address] [place] [address] PCP - General 08/14/19 Gewn Conde MD [address] [facility] [address] [place] [address] Pediatric Cardiology 07/13/15 Padmini Gillis NP [address] [place] [address] Assigned PCP 09/06/22
--- OUTSIDE RECORDS SUMMARY | 2024-08-03 12:52 | XMS_ITS | Encounter Summary ---
Author Organization [place] Address [address] [place] [address] Care Team Providers Care School Cafeteria Cook Name Role Phone Gwen Conde MD Unavailable [phone] Alla Farley DO Primary Care Provider [phone] Padmini Gillis NP Unavailable Reason for Visit * Reason Onset Date Comments MH/CD Inpatient 08/14/2019 Encounter Details Date Type Department Care Team ([facility] st Contact Info) Description 08/14/2019 [facility] Behavioral Health Intake [address] [place] [address] Generic, Behavioral Intake, MH/CD Inpatient Social [...] PM CDT Parents authorize sending pt to [facility] [facility]. This would include [facility] and [facility]. Still seeking placement * Telephone Encounter - Jose Elias Delarosa - 08/15/2019 12:23 AM CDT ED called to report pt was accepted by [facility] but is out of network pt parents declined Pt will remain on wait-list * Telephone Encounter - Megan Puri - 08/14/2019 4:34 PM CDT S: Keagan from oct called with report; requesting admit on pt currently at [facility] ED due toSI with plans to [...] caller, pt has been medically cleared through [facility] ED for admission; no chronic medicalissues reported; voluntary/cooperative-pts parents agree to give admission consent; utox and HCG negative R: adolescent mental health is currently at capacity at [facility]; [facility] also at capacity this evening Valving Machine Operator states he will check with parents to see if they are willing to consider placement outsideof the [facility] area, and will follow up with intake Pt added to wait list at this time, and will remain in ED until an appropriate bed is available; fiber analyst notified that pt has been placed on wait list 4:41pm Per Keagan in OCT, pt will consider placement outside of the [facility]--personal lines underwriter contacted [facility] and spoke with Raina who states they are at capacity for the evening; pt remains on wait list at this time Update (10:41pm): spoke with Linnette at [facility], who states that they are able to review pt for possible admission; [facility] ED to fax clinical information to [phone] Photographic Hand Developer spoke with staff in ED at [facility] and provided contact information for [facility]--ED will fax information; awaiting outcome 10:55pm documented in this encounter Plan of Treatment Not on file documented as of this encounter Visit Diagnoses Not on filedocumented in this encounter Care Teams School Cafeteria Cook Relationship Specialty Start Date End Date Alla Farley DO [facility] [address] [place] [address] PCP - General 08/14/19 Gwen Conde MD 9680 [facility] [address] [place] [address] Pediatric Cardiology 07/13/15 Padmini Gillis NP [address] [place] [address] Assigned PCP 09/06/22 documented as of this encounter
--- OUTSIDE RECORDS SUMMARY | 2024-08-03 12:52 | XMS_ITS | Encounter Summary ---
Author Organization [place] Address [address] [place] [address] Care Team Providers Care Middle School Baseball Coach Name Role Phone Alysa Gillis MD Primary Care Provid er Gwen Conde MD Unavailable [phone] Alysa Gillis MD Unavailable + [phone] Alla Farley DO Primary Care Provider [phone] Padmini Gillis NP Unavailable Encounter Details Date Type Department Care Team (Late st Contact Info) Description 12/31/2015 [facility] Medical Advice Pediatric Specialty Clinic, [facility] [address] [place] [address] Gwen Conde MD 2585 [facility] [address] [place] [address] Social History Tobacco Use Types [...] on filedocumented in this encounter Care Teams Middle School Baseball Coach Relationship Specialty Start Date End Date Alysa Gillis MD [address] [address] PCP - General Pediatrics 01/20/13 08/13/19 Alysa Gillis MD [address] [address] PCP - Assigned PCP 01/13/14 12/11/18 Alla Farley DO [facility] [address] [place] [address] PCP - General 08/14/19 Gwen Conde MD [address] [address] Pediatric Cardiology 07/13/15 Padmini Gillis NP [address] [place] [address] Assigned PCP 09/06/22 documented as of this encounter
--- NOTE | 2024-08-03 13:00 | CRLHL7_ITS ---
For Patients: As a result of the Century Cures Act, medical imaging exams and procedure reports are released immediately into your electronic medical record. You may view this report before your referring provider. If you have questions, please contact your health care provider. INDICATION: Irregular menstruation COMPARISON: none TECHNIQUE: 2D tripathi scale and color Doppler images were acquired of the pelvis using a transabdominal and transvaginal approach. FINDINGS: Sonographic images demonstrate a normal size and smooth outer contour of the uterus. Uterus measures 3.1 cm in length by 3.0 cm in AP diameter by 3.5 cm in transverse dimension. The myometrium has a normal uniform echotexture. The endometrial lining measures 4 mm in composite thickness. Hyperechoic structure within the endometrium measures 6 x 5 x 5 millimeters. The right ovary measures 2.7 x 1.9 x 2.0 cm in size and the left ovary measures 2.8 x 1.8 x 2.0 cm. The ovaries demonstrate normal arterial and venous blood flow on color Doppler analysis. Circumscribed left adnexal cyst is present measuring 4.3 x 3.4 x 4.2 cm. IMPRESSION: Probable endometrial polyp measuring 6 millimeters. Dictated by Manuel Gayle MD @ 08/04/2024 9:25:19 AM (Electronically Signed)
== END 2024-08-03 12:50 | disposition home or self-care (01) ==
PROVIDERS: PCP Physician Assistant Medical; Visit Provider Obstetrics & Gynecology
DX: N92.6 Irregular menstruation, unspecified (principal)
CPT/HCPCS: 76830; 76856

== ENCOUNTER 2024-09-22 05:52 | Day surgery (SDC) | payer OTHER, SELFPAY ==
[2024-09-22] VITALS (7 sets, daily range): BP systolic 99–123; BP diastolic 55–76; PULSE 62–80; RESP 16; TEMP 36.2–37.1; O2SAT 95–98; BMI 33.5
--- OUTSIDE RECORDS SUMMARY | 2024-09-22 05:55 | XMS_ITS | Encounter Summary ---
Author Organization [place] Address [address] [place] [address] Care Team Providers Care Cell Changer Name Role Phone Alysa Gillis MD Primary Care Provid er Gwen Conde MD Unavailable [phone] Alysa Gillis MD Unavailable + [phone] Alla Farley DO Primary Care Provider [phone] Padmini Gillis NP Unavailable Encounter Details Date Type Department Care Team (Late st Contact Info) Description 08/16/2013 [facility] Extended Documentation [facility] Services [facility] [address] [place] [address] Nita Medina, [facility] [address] [place] [address] Social History Tobacco Use Types Packs/Day Years Used Date Smoking Tobacco: Never Comments Unknown Sex and Gender Information Value Date Recorded Sex Assigned at Not on file Legal Sex Female 4:48 AM CLAIMS SPECIALIST Gender Identity Not on file Sexual Orientation Not on file documented as of this encounter Plan of Treatment Not on file documented as of this encounter Visit Diagnoses Not on filedocumented in this encounter Care Teams Cell Changer Relationship Specialty Start Date End Date Alysa Gillis MD [address] [address] PCP - General Pediatrics 01/20/13 08/13/19 Alysa Gillis MD [address] [address] PCP - Assigned PCP 01/13/14 12/11/18 Alla Farley DO [facility] [address] [address] PCP - General 08/14/19 Gwen Conde MD [address] [address] Pediatric Cardiology 07/13/15 Padmini Gillis NP [address] [place] [address] Assigned PCP 09/06/22 documented as of this encounter
--- OUTSIDE RECORDS SUMMARY | 2024-09-22 05:55 | XMS_ITS | Encounter Summary ---
Author Organization [place] Address [address] [place] [address] Care Team Providers Care Pigment Mixer Name Role Phone Alysa Gillis MD Primary Care Provid er Gwen Conde MD Unavailable [phone] Alysa Gillis MD Unavailable + [phone] Alla Farley DO Primary Care Provider [phone] Padmini Gillis NP Unavailable Encounter Details Date Type Department Care Team (Late st Contact Info) Description 12/31/2015 [facility] Medical Advice [facility]ty Clinic, [facility] [address] [place] [address] Gwen Conde MD [address] [facility] [address] [place] [address] Social History Tobacco Use Types Packs/Day Years Used Date Smoking Tobacco: Never Smokeless Tobacco: Never Alcohol Use Standard Drinks/Week Comments Not Asked 0 (1 standard drink = 0.6 oz pur e alcohol) Comments No Sex and Gender Information Value Date Recorded Sex Assigned at Not on file Legal Sex Female 4:48 AM JAVA DEVELOPER ANALYST Gender Identity Not on file Sexual Orientation Not on file documented as of this encounter Plan of Treatment Not on file documented as of this encounter Visit Diagnoses Not on filedocumented in this encounter Care Teams Pigment Mixer Relationship Specialty Start Date End Date Alysa Gillis MD [address] [address] PCP - General Pediatrics 01/20/13 08/13/19 Alysa Gillis MD [address] [address] PCP - Assigned PCP 01/13/14 12/11/18 Alla Farley DO [facility] [address] [place] [address] PCP - General 08/14/19 Gwen Conde MD [address] [address] Pediatric Cardiology 07/13/15 Padmini Gillis NP [address] [place] [address] Assigned PCP 09/06/22 documented as of this encounter
--- OUTSIDE RECORDS SUMMARY | 2024-09-22 05:55 | XMS_ITS | Clinical Summary ---
Author Organization [place] Address [address] [place] [address] Care Team Providers Care Centrifugal Casting Machine Operator Name Role Phone Gwen Conde MD Unavailable [phone] Alla Farley DO Primary Care Provider [phone] Padmini Gillis NP Unavailable Allergies Active Allergy Reactions Criticality Noted Date Comments Pollen Extract/Tree Extract 03/25/20 13 Seasonal Allergies 07/13/2015 Medications Multiple Vitamins-Iron (MULTIVITAMIN/I JOSE ANTONIO PO) Take 1 tablet by mouth daily Active ibuprofen (ADVIL/MOTRIN) 200 MG tablet Take 400-600 mg by mouth as needed for mild pain Active QUEtiapine (SEROQUEL) 100 MG tablet Take 1 tablet (100 mg) by mouth At Bedtime 2 Active prazosin (MINIPRESS) 1 MG capsule TAKE 1 CAPSULE BY MOUTH AT BEDTIME FOR NIGHTMARES 1 Active XULANE 150-35 MCG/24HR patch APPLY 1 PATCH TOPICALLY ONCE A WEEK FOR 3 WEEKS OF A 4 WEEK CYCLE. NEED TO BE SEEN FOR REFILLS. 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 Other seborrheic dermatitis 07/05/2015 Generalized anxiety disorder 06/15/2013 Resolved Problems Problem Noted Date Diagnosed Date Resolved Date Depression 06/15/2013 08/26/2022 Anxiety 01/05/2013 06/15/2013 Immunizations Name Administration Dates Next Due COVID-19 Bivalent 18+ (Moderna) 08/26/2022 COVID-19 MONOVALENT 12+ (Pfizer) 04/02/2021,02/15 DTAP (<7y) 01/23/2009, 5,03/26/2004,2003,2003 DTaP/HepB/IPV 07/01/2004,2003,2003 HEPATITIS [...] School Help Needed Not on file 09/01 Comments No Sex and Gender Information Value Date Recorded Sex Assigned at Not on file Legal Sex Female 4:48 AM REHABILITATION TECHNICIAN Gender Identity Not on file Sexual Orientation [...] 08/26/2022, 04/02/2021, 03/12/2021 INFLUENZA VACCINE (#1) 2024 , 11/03/2009, 09/14/2008 PAP 2024 DTAP/TDAP/TD IMMUNIZATION (7 - Td or Tdap) 08/03/2025 08/03/2015, 01/23/2009, 05/09/2005, Additional history exists RSV VACCINE (1 - 1-dose 75+ series) 2078 HEPATITIS B IMMUNIZATION Completed 004, 07/01/2004, 2003, [...] age to complete this topic Care Teams Centrifugal Casting Machine Operator Relationship Specialty Start Date End Date Alla Farley DO [facility] [address] [place] [address] PCP - General 08/14/19 Gwen Conde MD 9680 [facility] [address] [place] [address] Pediatric Cardiology 07/13/15 Padmini Gillis NP [address] [place] [address] Assigned PCP 09/06/22
--- OUTSIDE RECORDS SUMMARY | 2024-09-22 05:55 | XMS_ITS | Referral Summary ---
Author Organization [place] Address [address] [place] [address] Care Team Providers Care Compressor Station Operator Name Role Phone Gwen Conde MD Unavailable [phone] Alla Farley DO Primary Care Provider [phone] Padmini Gillis NP Unavailable Allergies Active Allergy [...] on file Legal Sex Female 4:48 AM PROSTHODONTIST Gender Identity Not on file Sexual Orientation [...] of Treatment Not on file Care Teams Compressor Station Operator Relationship Specialty Start Date End Date Alla Farley, [facility] [address] [place] [address] PCP - General 08/14/19 Gwen Conde MD 9680 [facility] [address] [place] [address] Pediatric Cardiology 07/13/15 Padmini Gillis NP [address] [place] [address] Assigned PCP 09/06/22
--- OUTSIDE RECORDS SUMMARY | 2024-09-22 05:55 | XMS_ITS | Encounter Summary ---
Author Organization [facility] Address [address] [place] [id number] Care Team Providers Care Learning And Development Manager Name Role Phone Gwen Conde MD Unavailable [phone] Alla Farley DO Primary Care Provider [phone] Padmini Gillis NP Unavailable Reason for Visit * Reason Onset Date Comments MH/CD Inpatient 08/14/2019 Encounter Details Date Type Department Care Team ([facility] st Contact Info) Description 08/14/2019 [facility] Health Intake [address] [place] [id number] Generic, Behavioral Intake, MH/CD Inpatient Social History Tobacco Use Types Packs/Day Years Used Date Smoking Tobacco: Never Smokeless Tobacco: Never Alcohol Use Standard Drinks/Week Comments No 0 (1 standard drink = 0.6 oz pur e alcohol) Comments No Sex and Gender Information Value Date Recorded Sex Assigned at Not on file Legal Sex Female 4:48 AM TRIAGE NURSE Gender Identity Not on file Sexual Orientation Not on file documented as of this encounter Miscellaneous Notes * Telephone Encounter - Ant Drew - 08/15/2019 2:29 PM CDT Parents authorize sending pt to [facility]. This would include [facility] and [facility]. Still seeking placement * Telephone Encounter - Jose Elias Delarosa - 08/15/2019 12:23 AM CDT ED called to report pt was accepted by [facility] but is out of network pt parents declined Pt will remain on wait-list * Telephone Encounter - Megan Puri - 08/14/2019 4:34 PM CDT S: Keagan from oct called with report; requesting admit on pt currently at [facility] ED due toSI with plans to cut [...] caller, pt has been medically cleared through [facility] ED for admission; no chronic medicalissues reported; voluntary/cooperative-pts parents agree to give admission consent; utox and HCG negative R: adolescent mental health is currently at capacity at [facility]; [facility] also at capacity this evening Machine Adjuster Leader states he will check with parents to see if they are willing to consider placement outsideof the [facility] area, and will follow up with intake Pt added to wait list at this time, and will remain in ED until an appropriate bed is available; parts designer notified that pt has been placed on wait list 4:41pm Per Keagan in OCT, pt will consider placement outside of the [facility]--insurance writer contacted [facility] and spoke with Raina who states they are at capacity for the evening; pt remains on wait list at this time Update (10:41pm): spoke with Linnette at [facility], who states that they are able to review pt for possible admission; [facility] ED to fax clinical information to [phone] Job Site Superintendent spoke with staff in ED at [facility] and provided contact information for [facility]--ED will fax information; awaiting outcome 10:55pm documented in this encounter Plan of Treatment Not on file documented as of this encounter Visit Diagnoses Not on filedocumented in this encounter Care Teams Learning And Development Manager Relationship Specialty Start Date End Date Alla Farley DO [facility] [address] [place] [address] PCP - General 08/14/19 Gwen Conde MD [address] [facility] [address] [place] [address] Pediatric Cardiology 07/13/15 Padmini Gillis NP [address] [place] [id number] Assigned PCP 09/06/22 documented as of this encounter
[2024-09-22] MEDS: 0.9 % SODIUM CHLORIDE 1000 ml 500 ML 75 ML IV (06:28)
[2024-09-22 06:37] LABS: Ur HCG Qualitative* Negative (Negative)
--- NOTE | 2024-09-22 07:29 | W.PM.H&PU ---
History & Physical Update History & Physical Update H&P Reviewed and patient assessed: No changes noted
[2024-09-22] MEDS: SILVER NITRATE APPLICATOR 1 EACH STICK..EA. TOPICAL (07:55)
--- NOTE | 2024-09-22 07:57 | P.GYNPRC_ITS ---
Procedure Note Date of procedure: 09/22/24 Will [facility] bill your pro fee for this procedure?: Yes Pre-op diagnosis: Menorrhagia, suspected endometrial polyps Post-op diagnosis: Menorrhagia Endometrial polyps Procedure: Hysteroscopy, hysteroscopic polypectomy, dilation and curettage, placement of Mirena IUD Anesthesia: MAC and local Complications: none Surgeon: Dr. Patricia Wong MD Estimated blood loss (mL): 10 IV fluids (mL): 0 Urine Output (mL): 150 Pathology: specimen obtained, sent to pathology (endometrial curettings) Condition: stable Disposition: same day Findings: 1. On exam under anesthesia, vulva, vagina and cervix were normal in appearance. Bimanual exam revealed anteverted uterus of normal size and no palpable adnexal masses or tenderness. 2. Upon hysteroscopy, survey of the endometrial cavity revealed diffusely thickened endometrium. There was an apparent flat, broad-based polyp along the posterior endometrium, and two subcentimeter polyps in the anterior fundal region. Cavity shape and tubal ostia were normal in appearance. Endocervix was normal in appearance. Saline deficit: 160 cc Procedure Description: Patient was taken to the operating room with IV running. She was positioned in dorsal lithotomy position with her legs fully supported in Yellofin stirrups. Monitored anesthesia care was administered. She was prepped and draped in the usual sterile fashion. Exam under anesthesia was performed for the above-noted findings. Speculum was inserted. Cervix visualized and grasped along the anterior lip with a single-tooth tenaculum. Cervix was serially dilated to accommodate the TRUCLEAR hysteroscope. This was assembled with saline inflow and outflow in place. The line was flushed of bubbles. The hysteroscope was advanced through the cervix into the endometrial cavity for the above noted findings. The tissue morcellator was then inserted through the operating channel. Window lock was performed. Under direct visualization, the endometrial cavity was circumferentially curetted with the tissue morcellator. The hysteroscope and morcellator were then removed from the uterus. Uterus sounds to 8 cm. The IUD is loaded into the insertion tube, inserted to the sounded depth, and the IUD is deployed. Insertion tube was removed. Strings are trimmed to 3 cm. Tenaculum was removed from the anterior lip of cervix. Silver nitrate was used several times to obtain hemostasis. Patient tolerated procedure well. She was taken to recovery area in stable condition.
[2024-09-22] MEDS: LIDOCAINE 1% MDV 20 ML INJECTION (08:00)
--- NOTE | 2024-09-22 08:07 | W.ANESCHARGE ---
Anesthesia Charges Start Date/Time Anesthesia Start Date: 09/22/24 Anesthesia Start Time: 07:18 Stop Date/Time Anesthesia Stop Date: 09/22/24 Anesthesia Stop Time: 08:03
[2024-09-22] MEDS: ACETAMINOPHEN 500 MG TABLET 1000 MG PO (09:28)
== END 2024-09-22 09:56 | disposition home or self-care (01) ==
PROVIDERS: PCP Physician Assistant Medical; Visit Provider Obstetrics & Gynecology
PROC: 0UDB8ZZ Extraction of Endometrium, Via Natural or Artificial Opening Endoscopic (ICD-10-PCS; CPT 58558; principal; 2024-09-22 07:15)
DX: N92.0 Excessive and frequent menstruation with regular cycle (principal); N84.0 Polyp of corpus uteri; Z30.430 Encounter for insertion of intrauterine contraceptive device
CPT/HCPCS: 58558; 58300; 00952; 36415; 81025; 86850; 86900; 86901; 88305; J2003; A9270; C1782; J1100; J1885; J2250; J2405; J2704; J3010; J7030; J7298

== ENCOUNTER 2025-03-09 09:35 | Outpatient (CLI) | payer OTHER, SELFPAY | END 2025-03-09 09:36 | disposition home or self-care (01) | LOC: NFLDREF 03-12 08:27 | PROVIDERS: PCP Physician Assistant Medical; Referring Provider Physician Assistant Medical; Visit Provider Physician Assistant Medical | DX: Z00.01 Encounter for general adult medical examination with abnormal findings (principal); R79.89 Other specified abnormal findings of blood chemistry; R79.0 Abnormal level of blood mineral; E55.9 Vitamin D deficiency, unspecified; D50.0 Iron deficiency anemia secondary to blood loss (chronic); G47.9 Sleep disorder, unspecified; F41.9 Anxiety disorder, unspecified; F90.0 Attention-deficit hyperactivity disorder, predominantly inattentive type; Z11.3 Encounter for screening for infections with a predominantly sexual mode of transmission | CPT/HCPCS: 80053; 80061; 82306; 82607; 82728; 84443; 87491; 87591 ==

== ENCOUNTER 2025-06-01 13:00 | Outpatient (CLI) | payer OTHER, SELFPAY | END 2025-06-01 13:01 | disposition home or self-care (01) | LOC: NFLDREF 06-02 10:01 | PROVIDERS: PCP Physician Assistant Medical; Referring Provider Physician Assistant Medical; Visit Provider Physician Assistant Medical | DX: R79.0 Abnormal level of blood mineral (principal); E55.9 Vitamin D deficiency, unspecified; R79.89 Other specified abnormal findings of blood chemistry; D50.0 Iron deficiency anemia secondary to blood loss (chronic) | CPT/HCPCS: 82306; 82607; 82728 ==

== ENCOUNTER 2025-10-05 13:15 | Outpatient (CLI) | payer OTHER, SELFPAY | END 2025-10-05 13:16 | disposition home or self-care (01) | LOC: NFLDREF 10-11 06:08 | PROVIDERS: PCP Physician Assistant Medical; Referring Provider Physician Assistant Medical; Visit Provider Physician Assistant Medical | DX: E55.9 Vitamin D deficiency, unspecified (principal); D50.0 Iron deficiency anemia secondary to blood loss (chronic) | CPT/HCPCS: 82306; 82728 ==